=== PATIENT | male | born 1970 | race Caucasian/White ===

== ENCOUNTER 2023-03-12 14:27 | Emergency (ER) | payer MEDICAID ==
[~2023-03-12] VITALS: Ht 177.8 cm; Wt 111.2 kg
[2023-03-12 14:45] VITALS: BP 154/87
[2023-03-12] MEDS ORDERED: LIDOCAINE 1% HCL (LOCAL ANESTH.) INJ 20ML MDV IJ ONE (16:00)
[2023-03-12] MEDS ORDERED: TETANUS-DIPTH-ACEL PERTUSSIS 0.5ML SYR Tdap IM ONE (16:00)
[2023-03-12] MEDS ORDERED: AUG875T PO (16:30)
[2023-03-12] MEDS ORDERED: NAPR-746 PO (16:30)
== END 2023-03-12 16:32 | disposition home or self-care (01) ==
LOC: ER 14:27
DX: S61.512A Laceration without foreign body of left wrist, initial encounter (principal); J44.9 Chronic obstructive pulmonary disease, unspecified; E78.5 Hyperlipidemia, unspecified; F17.210 Nicotine dependence, cigarettes, uncomplicated; Z88.1 Allergy status to other antibiotic agents; W54.0XXA Bitten by dog, initial encounter; Y93.89 Activity, other specified; Y92.89 Other specified places as the place of occurrence of the external cause; Y99.8 Other external cause status
CPT/HCPCS: 12004; 73120; 90471; 90715; 99283; J2001